=== PATIENT | male | born 1990 | race Caucasian/White ===

== ENCOUNTER 2018-11-05 22:26 | Emergency (ER) | payer SELFPAY ==
[2018-11-06] MEDS ORDERED: PREDNISONE 20 MG TABLET PO ONE (00:42)
[2018-11-06] MEDS ORDERED: IPRATROPIUM/ALBUTEROL 0.5-2.5 MG/3 ML AMPUL NEB ONE (00:42)
--- NOTE | 2018-11-06 00:47 | ER Document Report ---
ED Respiratory Problem - General Chief Complaint: Cough Stated Complaint: SHORTNESS OF BREATH Time Seen by Provider: 11/06/18 00:40 Notes: Patient is a 27-year-old male history of asthma presents to the emergency department for generalized cough, congestion, respiratory distress. States he has been using his mother's albuterol inhaler as he ran out of his albuterol for his nebulizer machine. States he needs refills on his albuterol. Patient states he feels as though he has had a subjective fever. Patient's denying any active phlegm. Patient's denying any chest pain. Patient openly admits to smoking marijuana "sometimes." Past Medical History - General Information source: Patient - Social History Smoking Status: Never Smoker Chew tobacco use (# tins/day): No Drug Abuse: Marijuana Family History: Reviewed & Not Pertinent Patient has suicidal ideation: No Patient has homicidal ideation: No Pulmonary Medical History: Reports: Hx Asthma Renal/ Medical History: Denies: Hx Peritoneal Dialysis Review of Systems - Review of Systems Constitutional: denies: Fever EENT: See HPI Cardiovascular: See HPI Respiratory: See HPI Gastrointestinal: No symptoms reported Genitourinary: No symptoms reported Male Genitourinary: No symptoms reported Musculoskeletal: No symptoms reported Skin: No symptoms reported Hematologic/Lymphatic: No symptoms reported Neurological/Psychological: No symptoms reported Physical Exam - Vital signs Vitals: Temp Pulse Resp BP Pulse Ox 98.2 F 69 18 136/83 H 97 11/05/18 22:33 11/05/18 22:33 11/05/18 22:33 11/05/18 22:33 11/05/18 22:33 - Notes Notes: GENERAL: Alert, interacts well. No acute distress. HEAD: Normocephalic, atraumatic. EYES: Pupils equal, round, and reactive to light. Extraocular movements intact. ENT: Oral mucosa moist, tongue midline. Nares patent, no nasal septal hematoma, TM's intact, nonerythematous, nonbulging bilaterally. Pharynx within normal limits no palatal petechiae or exudate noted. NECK: Full range of motion. Supple. Trachea midline. LUNGS: Scant inspiratory and expiratory wheeze to auscultation all lung cabral., No discernible rales, or rhonchi. No respiratory distress. HEART: Regular rate and rhythm. No murmur ABDOMEN: Soft, non-tender. Non-distended. Bowel sounds present in all 4 quadrants. EXTREMITIES: Moves all 4 extremities spontaneously. No edema, normal radial and dorsalis pedis pulses bilaterally. No cyanosis. BACK: no cervical, thoracic, lumbar midline tenderness. No saddle anesthesia, normal distal neurovascular exam. NEUROLOGICAL: Alert and oriented x3. Normal speech. cranial nerves II through XII grossly intact. PSYCH: Normal affect, normal mood. SKIN: Warm, dry, normal turgor. No rashes or lesions noted. Course - Re-evaluation Re-evalutation: 11/06/18 01:37 Chest X-Ray 11/06/18 00:43 IMPRESSION: Clear lungs. Chest x-ray reveals no signs of pneumonia, pneumothorax, rib fractures. After breathing treatments in the emergency department patient's lung sounds are clear and equal in all cabral. Discussed with patient follow-up with a primary care provider so he does not run out of his albuterol inhaler. Also discussed use of steroids. At this time will discharge with return precautions and follow-up recommendations. Verbal discharge instructions given a the bedside and opportunity for questions given. Medication warnings reviewed. Patient is in agreement with this plan and has verbalized understanding of return precautions and the need for primary care follow-up in the next 24-72 hours. This medical record was dictated with voice recognizing software. There may be grammatical, syntax errors that are unintended. - Vital Signs Vital signs: Temp Pulse Resp BP Pulse Ox 98.2 F 69 18 136/83 H 97 11/05/18 22:33 11/05/18 22:33 11/05/18 22:33 11/05/18 22:33 11/05/18 22:33 Discharge - Discharge Clinical Impression: Acute bronchospasm Condition: Stable Disposition: HOME, SELF-CARE Instructions: Asthma ([facility]) Additional Instructions: As we discussed you have been seen and treated in the emergency department for a flareup of your asthma. Please make sure you are taking steroids as prescribed. Please also make sure you take albuterol inhaler as prescribed. Please follow- up with a primary care provider's you do not run out of your albuterol inhaler. Please return to the emergency room for any further concerns. Prescriptions: Albuterol Sulfate [Proair HFA Inhalation Aerosol 8.5 gm MDI] 2 puff IH Q4H PRN #1 mdi PRN Reason: Albuterol Sulfate [Ventolin 0.083% Neb 2.5 mg/3 mL Ampul] 1 vial NEB Q4 #60 vial Prednisone [Deltasone 20 mg Tablet] 3 tab PO DAILY 5 Days tablet Forms: Return to Work Referrals: [facility] [Provider Group] - Follow up as needed [facility] [Provider Group] - Follow up as needed
--- NOTE | 2018-11-06 01:28 | RADIOLOGY REPORT (SQ) ---
CLINICAL HISTORY: SOB COMPARISON: None. TECHNIQUE: XR CHEST 2 VIEWS 11/06/2018 12:43 AM CDT FINDINGS: Cardiac silhouette is normal in size. Lungs are clear without consolidation, atelectasis, mass or edema. There is no pleural effusion. There is no pneumothorax. There are no acute osseous findings. IMPRESSION: Clear lungs.
[2018-11-06] MEDS ORDERED: ALBUTEROL SULFATE HFA (90 MCG/PUFF) 8 GM MDI (1 MDI/ER DISP) IH ONE (01:40)
[2018-11-06 01:52] VITALS: BP 149/77
== END 2018-11-06 01:54 | disposition home or self-care (01) ==
LOC: ER 22:26
DX: J45.909 Unspecified asthma, uncomplicated (principal); R05 Cough; R06.03 Acute respiratory distress; F12.10 Cannabis abuse, uncomplicated
CPT/HCPCS: 71046; J7512; J3490; J7620; 94640; 99284